=== PATIENT | male | born 2000 | race Hispanic/Latino ===

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

== ENCOUNTER 2020-06-25 09:31 | Emergency (ER) | payer OTHER ==
[2020-06-25 10:19] LABS: Absolute Lymphocytes (CBC) 1.8 K/uL (0.7-4.9); Basophils % 0.7 % (0-1.3); Hematocrit 43.1 % (39.6-49.0); Lymphocytes % 23.8 % (15.3-44.8); MPV 8.4 fL (7.6-11.3); RBC Red Blood Cell Count 5.17 M/uL (4.33-5.43)
[2020-06-25 10:26] LABS: BUN Blood Urea Nitrogen 9 mg/dL (7-18); Bicarbonate 24 mmol/L (21-32); Glucose Level 112 mg/dL (74-106); Sodium Level 140 mmol/L (136-145)
--- NOTE | 2020-06-25 11:29 | EDPHYS ---
Physician Documentation [facility] Name: Jessenia Scott Age: 20 yrs Sex: Male : 2000 Arrival Date: 06/25/2020 Time: 09:35 Bed 6 Private MD: Terri Mckinney ED Physician Yosef Pedraza HPI: 06/25 09:55 This 20 yrs old Male presents to ER via Ambulatory with complaints of Rectal kb Bleeding. 09:55 The patient presents to the emergency department with bleeding from the rectum/anus, kb that is mild. Onset: The symptoms/episode began/occurred 6 year(s) ago. Context: the patient has had anal intercourse. Modifying factors: The symptoms are alleviated by nothing, The symptoms are aggravated by bowel movement. Associate signs and symptoms: Pertinent positives: lower GI bleeding, bright red. The patient has experienced similar episodes in the past. The patient has not recently seen a physician. Pt reports rectal bleeding since he was 14 years old. States it has been worse lately so he wanted to get it checked out. Denies abd pain. States he does have anal intercourse, last time 2 months ago. . Historical: - Allergies: 09:48 No Known Allergies; ss - Home Meds: 09:48 None [Active]; ss - PMHx: 09:48 Asthma; ss - PSHx: 09:48 None; ss - Immunization history:: Adult Immunizations up to date. - Social history:: Smoking status: Patient denies any tobacco usage or history of. ROS: 09:57 Constitutional: Negative for fever, chills, and weight loss, Respiratory: Negative for kb shortness of breath, cough, wheezing, and pleuritic chest pain, : Negative for injury, bleeding, discharge, and swelling, MS/Extremity: Negative for injury and deformity, Skin: Negative for injury, rash, and discoloration, Neuro: Negative for headache, weakness, numbness, tingling, and seizure. 09:57 Abdomen/GI: Positive for rectal bleeding, Negative for abdominal pain, nausea and vomiting, diarrhea. Exam: 11:27 Constitutional: This is a well developed, well nourished patient who is awake, alert, kb and in no acute distress. Head/Face: Normocephalic, atraumatic. Respiratory: Respirations even and unlabored. No increased work of breathing, no retractions or nasal flaring. Abdomen/GI: Soft, non-tender. No distention Skin: Warm, dry with normal turgor. Normal color. MS/ Extremity: Pulses equal, no cyanosis. Neurovascular intact. Full, normal range of motion. Neuro: Awake and alert, GCS 15, oriented to person, place, time, and situation. Moves all extremities. Normal gait. 11:27 Abdomen/GI: Rectal exam: rectal tone normal, Stool: normal, guaiac positive. Vital Signs: 09:45 BP 154 / 108; Pulse 109; Resp 16; Temp 98.1(TE); Pulse Ox 99% on R/A; Height 5 ft. 7 ss in. (170.18 cm); Pain 0/10; 10:22 BP 130 / 72 RA Sitting (auto/reg); Pulse 88; Resp 16 S; Pulse Ox 97% on R/A; sv 11:27 BP 130 / 81; Pulse 90; Resp 16; Pulse Ox 98% ; sv MDM: 09:49 Patient medically screened. kb 09:56 Data reviewed: vital signs, nurses notes. Data interpreted: Pulse oximetry: on room air kb is 99 %. Interpretation: normal. 11:27 Counseling: I had a detailed discussion with the patient and/or guardian regarding: the kb historical points, exam findings, and any diagnostic results supporting the discharge/admit diagnosis, lab results, the need for outpatient follow up, a orthopaedic surgeon, to return to the emergency department if symptoms worsen or persist or if there are any questions or concerns that arise at home. 06/25 09:49 Order name: Basic Metabolic Panel 06/25 09:49 Order name: CBC with Diff; Complete Time: 10:26 06/25 09:49 Order name: IV Saline Lock; Complete Time: 10:00 06/25 09:49 Order name: Labs collected and sent; Complete Time: 10:00 06/25 09:50 Order name: Basic Metabolic Panel; Complete Time: 10:26 EDMS Administered Medications: No medications were administered Disposition: 06/26 07:29 Co-signature as Attending Physician, Yosef Pedraza MD I agree with the assessment and kdr plan of care. Disposition: 06/25/20 11:28 Discharged to Home. Impression: Gastrointestinal hemorrhage, unspecified - rectal bleeding. - Condition is Stable. - Discharge Instructions: Gastrointestinal Bleeding, [id number], Rectal Bleeding, [id number]. - Medication Reconciliation Form, Thank You Letter, Antibiotic Education, Prescription Opioid Use, Work release form form. - Follow up: Emergency Department; When: As needed; Reason: Worsening of condition. Follow up: Private Physician; When: 2 - 3 days; Reason: Recheck today's complaints, Continuance of care, Re-evaluation by your physician. Signatures: Dispatcher [employer] EDMS Emeli Quintero, DAVID-C PLANT CONTROL AIDE-Mabel Le, RN RN sv Yosef Pedraza MD MD [facility] Samantha Girard RN RN ss Corrections: (The following items were deleted from the chart) 06/25 11:29 11:27 Counseling: I had a detailed discussion with the patient and/or guardian ace regarding: the historical points, exam findings, and any diagnostic results supporting the discharge/admit diagnosis, lab results, the need for outpatient follow up, a orthopaedic surgeon, to return to the emergency department if symptoms worsen or persist or if there are any questions or concerns that arise at home, 11:42 11:28 06/25/2020 11:28 Discharged to Home. Impression: Gastrointestinal hemorrhage, sv unspecified - rectal bleeding. Condition is Stable. Forms are Medication Reconciliation Form, Thank You Letter, Antibiotic Education, Prescription Opioid Use. Follow up: Emergency Department; When: As needed; Reason: Worsening of condition. Follow up: Private Physician; When: 2 - 3 days; Reason: Recheck today's complaints, Continuance of care, Re-evaluation by your physician. kb
--- NOTE | 2020-06-25 11:29 | ER ---
Nurse's Notes [facility] Name: Jessenia Scott Age: 20 yrs Sex: Male : 2000 Arrival Date: 06/25/2020 Time: 09:35 Bed 6 Private MD: Terri Mckinney Diagnosis: Gastrointestinal hemorrhage, unspecified-rectal bleeding Presentation: 06/25 09:45 Chief complaint: Patient states: Rectal bleeding that has been ongoing for some time, ss but states that now he is getting older and has anal intercourse that perhaps that is why it is getting worse. Coronavirus screen: Client denies travel out of the [place] in the last 14 days. Ebola Screen: Patient denies exposure to infectious person. Patient denies travel to an Ebola-affected area in the 21 days before illness onset. Initial Sepsis Screen: Does the patient meet any 2 criteria? No. Patient's initial sepsis screen is negative. Does the patient have a suspected source of infection? No. Patient's initial sepsis screen is negative. Risk Assessment: Do you want to hurt yourself or someone else? Patient reports no desire to harm self or others. Onset of symptoms is unknown. 09:45 Method Of Arrival: Ambulatory ss 09:45 Acuity: JERRY 3 ss Historical: - Allergies: 09:48 No Known Allergies; ss - Home Meds: 09:48 None [Active]; ss - PMHx: 09:48 Asthma; ss - PSHx: 09:48 None; ss - Immunization history:: Adult Immunizations up to date. - Social history:: Smoking status: Patient denies any tobacco usage or history of. Screenin:21 Abuse screen: Denies threats or abuse. Denies injuries from another. Nutritional sv screening: No deficits noted. Tuberculosis screening: No symptoms or risk factors identified. Fall Risk None identified. Assessment: 10:05 General: Appears in no apparent distress. comfortable, well developed, Behavior is sv calm, cooperative, appropriate for age. Pain: Denies pain. Neuro: Level of Consciousness is awake, alert, obeys commands, Oriented to person, place, time, situation, Appropriate for age. Respiratory: Airway is patent Respiratory effort is even, unlabored, Respiratory pattern is regular, symmetrical. GI: Reports bloody stool, streaked blood noted. Patient currently denies nausea, vomiting. Derm: Skin is normal. 11:42 Reassessment: Patient appears in no apparent distress at this time. No changes from sv previously documented assessment. Patient and/or family updated on plan of care and expected duration. Pain level reassessed. Patient is alert, oriented x 3, equal unlabored respirations, skin warm/dry/pink. Vital Signs: 09:45 BP 154 / 108; Pulse 109; Resp 16; Temp 98.1(TE); Pulse Ox 99% on R/A; Height 5 ft. 7 ss in. (170.18 cm); Pain 0/10; 10:22 BP 130 / 72 RA Sitting (auto/reg); Pulse 88; Resp 16 S; Pulse Ox 97% on R/A; sv 11:27 BP 130 / 81; Pulse 90; Resp 16; Pulse Ox 98% ; sv ED Course: 09:35 Patient arrived in ED. mr 09:35 Terri Mckinney is Private Physician. mr 09:47 Emeli Quintero FNP-C is [facility]. kb 09:47 Yosef Pedraza MD is Attending Physician. kb 09:47 Triage completed. ss 09:48 Arm band placed on right wrist. ss 10:00 Inserted saline lock: 20 gauge in left antecubital area, using aseptic technique. Blood mt collected. 10:04 Di Schafer, EVAN is Primary Nurse. sv 10:05 Patient has correct armband on for positive identification. Placed in gown. Bed in low sv position. Call light in reach. Adult w/ patient. Pulse ox on. NIBP on. Door closed. Head of bed elevated. 10:05 Basic Metabolic Panel Sent. sv 10:19 Primary Nurse role handed off by Di Schafer, EVAN sv 10:19 Mabel Hassan, EVAN is Primary Nurse. sv 10:22 Awaiting lab results. sv 11:30 Served as a manufacturing laborer during rectal exam. sv 11:41 IV discontinued, intact, bleeding controlled, No redness/swelling at site. Pressure sv dressing applied. Administered Medications: No medications were administered Outcome: 11:28 Discharge ordered by . kb 11:42 Discharged to home ambulatory, with family. sv 11:42 Condition: stable 11:42 Discharge instructions given to patient, Instructed on discharge instructions, follow up and referral plans. Demonstrated understanding of instructions, follow-up care. 11:42 Patient left the ED. sv Signatures: Eemli Quintero, ROSALBA HERNANDEZ-Mabel Le RN EVAN Ambrose Cari Samantha Suazo, RN RN Rupali Roberson mo
[2020-06-25 11:55] VITALS: TEMP 98.1
[2020-06-25 11:57] VITALS: BP 130/81; O2SAT 98
== END 2020-06-25 11:42 | disposition home or self-care (01) ==
LOC: ER 09:31
DX: K62.5 Hemorrhage of anus and rectum (principal)
CPT/HCPCS: 36415; 80048; 85025; 99284

== ENCOUNTER 2021-02-17 17:37 | Emergency (ER) | payer OTHER ==
[2021-02-17 19:04] LABS: SARS-COV-2 RT PCR NEGATIVE (NEGATIVE)
--- NOTE | 2021-02-17 19:42 | ER ---
Nurse's Notes [facility] Name: Jessenia Scott Age: 20 yrs Sex: Male : 2000 Arrival Date: 02/17/2021 Time: 17:42 Bed Treatment Private MD: Diagnosis: Acute pharyngitis, unspecified Presentation: 02/17 17:59 Chief complaint: Patient states: I began having a sore swollen throat around 02/13/2021. ld1 Pt reports fever, sore throat, ARTURO ear pain. Coronavirus screen: Client presents with at least one sign or symptom that may indicate coronavirus-19. Standard/surgical mask placed on the client. Ebola Screen: No symptoms or risks identified at this time. Initial Sepsis Screen: Does the patient meet any 2 criteria? No. Patient's initial sepsis screen is negative. Does the patient have a suspected source of infection? No. Patient's initial sepsis screen is negative. Risk Assessment: Do you want to hurt yourself or someone else? Patient reports no desire to harm self or others. Onset of symptoms was February 17, 2021. 17:59 Method Of Arrival: Ambulatory ld1 17:59 Acuity: JERRY 4 ld1 Triage Assessment: 18:02 General: Appears in no apparent distress. comfortable, Behavior is calm, cooperative, ld1 appropriate for age. Pain: Denies pain. EENT: Throat is reddened. Neuro: Level of Consciousness is awake, alert, obeys commands, Oriented to person, place, time, situation, Appropriate for age. Cardiovascular: Capillary refill < 3 seconds Patient's skin is warm and dry. Respiratory: Airway is patent Respiratory effort is even, unlabored, Respiratory pattern is regular, symmetrical. GI: Abdomen is round non-distended. : No signs and/or symptoms were reported regarding the genitourinary system. Derm: No signs and/or symptoms reported regarding the dermatologic system. Musculoskeletal: No signs and/or symptoms reported regarding the musculoskeletal system. Historical: - Allergies: 18:02 No Known Allergies; ld1 - Home Meds: 18:02 None [Active]; ld1 - PMHx: 18:02 Asthma; ld1 - PSHx: 18:02 None; ld1 - Immunization history:: Adult Immunizations up to date, Client reports having NOT received the Covid vaccine. - Social history:: Smoking status: Patient denies any tobacco usage or history of. Patient/guardian denies using alcohol. Screenin:31 Abuse screen: Denies threats or abuse. Denies injuries from another. Nutritional [facility] screening: No deficits noted. Tuberculosis screening: No symptoms or risk factors identified. Fall Risk None identified. Assessment: 19:33 Respiratory: Airway is patent Trachea midline Respiratory effort is even, unlabored, 5 Respiratory pattern is regular, Vital Signs: 17:59 BP 120 / 72; Pulse 125; Resp 18; Temp 99.9(O); Pulse Ox 98% on R/A; Weight 90.72 kg; ld1 Height 5 ft. 7 in. (170.18 cm); Pain 0/10; 17:59 Body Mass Index 31.32 (90.72 kg, 170.18 cm) ld1 ED Course: 17:42 Patient arrived in ED. mr 18:02 Triage completed. ld1 18:02 Arm band placed on right wrist. ld1 18:08 COVID-19/FLU A+B/RSV (Document "Date of Onset" if Symptomatic) Sent. ld1 18:08 Strep Sent. ld1 19:30 Joe Gerardo PA is PHCP. [facility] 19:30 Renaldo Mata MD is Attending Physician. [facility] 19:31 No provider procedures requiring assistance completed. 5 19:32 Jeffy Mera, EVAN is Primary Nurse. as6 19:32 Patient has correct armband on for positive identification. Bed in low position. Call [facility] light in reach. Side rails up X 1. 19:53 Patient did not have IV access during this emergency room visit. as6 Administered Medications: No medications were administered Outcome: 19:42 Discharge ordered by . [facility] 19:53 Discharged to home ambulatory. as6 19:53 Condition: stable 19:53 Discharge instructions given to patient, Instructed on discharge instructions, follow up and referral plans. medication usage, Demonstrated understanding of instructions, follow-up care, medications, Prescriptions given X 1. 19:54 Patient left the ED. as6 Signatures: Joe Gerardo PA PA [facility] Arnol Cari Lina Garcia RN RN ld1 Joseline Kyle RN RN 5 Slawson, Jeffy, RN RN as6
--- NOTE | 2021-02-17 19:42 | EDPHYS ---
Physician Documentation [facility] Name: Jessenia Scott Age: 20 yrs Sex: Male : 2000 Arrival Date: 02/17/2021 Time: 17:42 Bed Treatment Private MD: ED Physician Renaldo Mata HPI: 02/17 19:38 This 20 yrs old Male presents to ER via Ambulatory with complaints of Sore jmm Throat. 19:38 The patient presents with sore throat. Onset: The symptoms/episode began/occurred jmm gradually, 4 day(s) ago. Modifying factors: The symptoms are alleviated by nothing, the symptoms are aggravated by nothing. Associated signs and symptoms: Pertinent negatives cough, vomiting. The patient has experienced similar episodes in the past. Historical: - Allergies: 18:02 No Known Allergies; ld1 - Home Meds: 18:02 None [Active]; ld1 - PMHx: 18:02 Asthma; ld1 - PSHx: 18:02 None; ld1 - Immunization history:: Adult Immunizations up to date, Client reports having NOT received the Covid vaccine. - Social history:: Smoking status: Patient denies any tobacco usage or history of. Patient/guardian denies using alcohol. ROS: 19:38 Cardiovascular: Negative for chest pain, palpitations, and edema, Respiratory: Negative jmm for shortness of breath, cough, wheezing, and pleuritic chest pain. 19:38 Constitutional: Positive for body aches, chills, fever. 19:38 All other systems are negative. Exam: 19:38 Constitutional: This is a well developed, well nourished patient who is awake, alert, jmm and in no acute distress. Head/Face: atraumatic. Eyes: EOMI, no conjunctival erythema appreciated 19:38 Back: Normal ROM Skin: General appearance color normal MS/ Extremity: Moves all extremities, no obvious deformities appreciated, no edema noted to the lower extremities Neuro: Awake and alert, normal gait Psych: Behavior is normal, Mood is normal, Patient is cooperative and pleasant 19:38 ENT: Posterior pharynx: erythema, that is moderate. 19:38 Cardiovascular: Rate: normal, Rhythm: regular. 19:38 Respiratory: the patient does not display signs of respiratory distress, Respirations: normal, Breath sounds: are clear throughout. Vital Signs: 17:59 BP 120 / 72; Pulse 125; Resp 18; Temp 99.9(O); Pulse Ox 98% on R/A; Weight 90.72 kg; ld1 Height 5 ft. 7 in. (170.18 cm); Pain 0/10; 17:59 Body Mass Index 31.32 (90.72 kg, 170.18 cm) ld1 MDM: 19:38 Patient medically screened. [facility] 19:39 Data reviewed: vital signs, nurses notes. Counseling: I had a detailed discussion with rimma the patient and/or guardian regarding: the historical points, exam findings, and any diagnostic results supporting the discharge/admit diagnosis, lab results, the need for outpatient follow up, to return to the emergency department if symptoms worsen or persist or if there are any questions or concerns that arise at home. ED course: Patient is alert and non toxic in appearance in the ED. Advised to follow up with pcp and otherwise given strict return precautions. patient understood and agrees with the plan of care. . 02/17 18:03 Order name: COVID-19/FLU A+B/RSV (Document "Date of Onset" if Symptomatic); Complete ld1 Time: 19:38 12 18:03 Order name: Strep; Complete Time: 19:38 ld1 02/17 18:25 Order name: Throat Culture EDMS Administered Medications: No medications were administered Disposition: 02/18 01:17 Co-signature as Attending Physician, Renaldo Mata MD. [email or web address] Disposition Summary: 02/17/21 19:42 Discharge Ordered Location: Home [facility] Condition: Stable [facility] Diagnosis - Acute pharyngitis, unspecified [facility] Followup: [facility] - With: Private Physician - When: 2 - 3 days - Reason: Recheck today's complaints, Continuance of care, Re-evaluation by your physician Discharge Instructions: - Discharge Summary Sheet [facility] - Pharyngitis [facility] Forms: - Medication Reconciliation Form [facility] - Thank You Letter [facility] - Antibiotic Education [facility] - Prescription Opioid Use [facility] Prescriptions: - Amoxicillin 875 mg Oral Tablet - take 1 tablet by ORAL route every 12 hours for 10 days; 20 tablet; Refills: 0, [facility] Product Selection Permitted Signatures: Dispatcher [employer] EDJoe Finn PA PA jmm Holmes, Maurice, MD MD 7 Lina Garcia, RN RN ld1
[2021-02-17 20:05] VITALS: BP 120/72; TEMP 99.9; O2SAT 98
== END 2021-02-17 19:54 | disposition home or self-care (01) ==
LOC: ER 17:37
DX: J02.9 Acute pharyngitis, unspecified (principal)
CPT/HCPCS: 87070; 87081; 0241U; 99283

== ENCOUNTER → 2023-03-12 | Emergency (ER) | payer OTHER ==
[~2023-03-12] MED LIST: METOCLOPRAMIDE 10 MG/2mL INJ ONE; NA CHLORIDE 0.9% 1,000 ML ONE; NA CHLORIDE 0.9% 50 ML ONE; ONDANSETRON 4 MG/2 ML VIAL ONE; POTASSIUM 25 MEQ EFFERV TAB ONE
[2023-03-12 03:43] LABS: Protime INR 1.14
[2023-03-12 03:47] LABS: Hematocrit 43.7 % (39.6-49.0); Lymphocytes % 35.1 % (15.3-44.8); MCV 83.8 fL (80-100); MPV 7.8 fL (7.6-11.3); Platelets 343 thou/uL (152-406); RBC Red Blood Cell Count 5.22 M/uL (4.33-5.43)
[2023-03-12 04:04] LABS: ALT/SGPT 22 U/L (16-61); AST/SGOT 19 U/L (15-37); Albumin 4.1 g/dL (3.4-5.0); Alkaline Phosphatase 74 U/L (45-117); BUN Blood Urea Nitrogen 12 mg/dL (7-18); Bicarbonate 24 mEq/L (21-32); Bilirubin Total 0.3 mg/dL (0.2-1.0); Glomerular Filtration Rate 119 ml/min (=/>90); Glucose Level 162 mg/dL (74-106); Potassium 2.9 mEq/L (3.5-5.1); Protein, Total 8.1 g/dL (6.4-8.2); Sodium Level 140 mEq/L (136-145)
[2023-03-12 04:05] LABS: Bilirubin Direct < 0.1 mg/dL (0-0.2); Bilirubin Indirect, Calculated ND mg/dL (0.2-0.8)
--- NOTE | 2023-03-12 04:26 | EDPHYS ---
Physician Documentation [facility] Name: Jessenia Scott Age: 22 yrs Sex: Male : 2000 Arrival Date: 03/12/2023 Time: 02:51 Bed 7 Private MD: ED Physician Inocente Coon HPI: 03/12 03:07 This 22 yrs old Male presents to ER via Unassigned with complaints of nausea , shukri vomiting after pot. 03:07 The patient presents to the emergency department with nausea, vomiting. Onset: The shukri symptoms/episode began/occurred just prior to arrival. Possible causes: pot brownies. The symptoms are aggravated by nothing. The symptoms are alleviated by nothing. pot brownies. Associated signs and symptoms: Pertinent positives: nausea, vomiting. Severity of symptoms: At their worst the symptoms were mild moderate in the emergency department the symptoms are unchanged. The patient has not experienced similar symptoms in the past. Historical: - Allergies: 03:30 No Known Allergies; vc1 - Home Meds: 03:30 None [Active]; vc1 - PMHx: 03:30 None; vc1 - PSHx: 03:30 None; vc1 - Immunization history:: Client reports having NOT received the Covid vaccine. Flu vaccine is not up to date. - Social history:: Smoking status: Patient denies any tobacco usage or history of. Patient uses first time eating a marijuana infused food. - Family history:: not pertinent. ROS: 03:07 Constitutional: Negative for fever, chills, and weight loss, Eyes: Negative for injury, shukri pain, redness, and discharge, ENT: Negative for injury, pain, and discharge, Neck: Negative for injury, pain, and swelling, Cardiovascular: Negative for chest pain, palpitations, and edema, Respiratory: Negative for shortness of breath, cough, wheezing, and pleuritic chest pain, Back: Negative for injury and pain, : Negative for injury, bleeding, discharge, and swelling, MS/Extremity: Negative for injury and deformity, Skin: Negative for injury, rash, and discoloration, Psych: Negative for depression, anxiety, suicide ideation, homicidal ideation, and hallucinations, Allergy/Immunology: Negative for hives, rash, and allergies, Endocrine: Negative for neck swelling, polydipsia, polyuria, polyphagia, and marked weight changes, Hematologic/Lymphatic: Negative for swollen nodes, abnormal bleeding, and unusual bruising, 03:07 Abdomen/GI: Positive for nausea and vomiting, 03:07 Neuro: Positive for altered mental status, Exam: 03:07 Constitutional: This is a well developed, well nourished patient who is awake, alert, shukri and in no acute distress. Head/Face: Normocephalic, atraumatic. Eyes: Pupils equal round and reactive to light, extra-ocular motions intact. Lids and lashes normal. Conjunctiva and sclera are non-icteric and not injected. Cornea within normal limits. Periorbital areas with no swelling, redness, or edema. ENT: Nares patent. No nasal discharge, no septal abnormalities noted. Tympanic membranes are normal and external auditory canals are clear. Oropharynx with no redness, swelling, or masses, exudates, or evidence of obstruction, uvula midline. Mucous membranes moist. Neck: Trachea midline, no thyromegaly or masses palpated, and no cervical lymphadenopathy. Supple, full range of motion without nuchal rigidity, or vertebral point tenderness. No Meningismus. Chest/axilla: Normal chest wall appearance and motion. Nontender with no deformity. No lesions are appreciated. Cardiovascular: Regular rate and rhythm with a normal S1 and S2. No gallops, murmurs, or rubs. Normal PMI, no JVD. No pulse deficits. Respiratory: Lungs have equal breath sounds bilaterally, clear to auscultation and percussion. No rales, rhonchi or wheezes noted. No increased work of breathing, no retractions or nasal flaring. Abdomen/GI: Soft, non-tender, with normal bowel sounds. No distension or tympany. No guarding or rebound. No evidence of tenderness throughout. Back: No spinal tenderness. No costovertebral tenderness. Full range of motion. Skin: Warm, dry with normal turgor. Normal color with no rashes, no lesions, and no evidence of cellulitis. MS/ Extremity: Pulses equal, no cyanosis. Neurovascular intact. Full, normal range of motion. Neuro: Awake and alert, GCS 15, oriented to person, place, time, and situation. Cranial nerves II-XII grossly intact. Motor strength 5/5 in all extremities. Sensory grossly intact. Cerebellar exam normal. Normal gait. Psych: Awake, alert, with orientation to person, place and time. Behavior, mood, and affect are within normal limits. 03:07 Musculoskeletal/extremity: DVT Exam: No signs of deep vein thrombosis. no pain, no swelling, no tenderness, negative Homans' sign noted on exam, no appreciated bluish discoloration, no erythema, no increased warmth, 03:31 ECG was reviewed by the Attending Physician. [facility] Vital Signs: 03:00 BP 127 / 62; Pulse 90; Resp 18; Temp 98.4; Pulse Ox 97% ; Weight 99.79 kg; Height 5 ft. vc1 7 in. ; Pain 0/10; 04:00 BP 127 / 97; Pulse 90; Resp 19; Pulse Ox 98% ; vc1 05:00 BP 122 / 70; Pulse 59; Resp 20; Pulse Ox 98% ; vc1 03:00 Body Mass Index 34.46 (99.79 kg, 170.18 cm) vc1 03:00 Pain Scale: Adult vc1 MDM: 03:00 Patient medically screened. cp 03:16 Differential diagnosis: Nonspecific abd pain, gastritis, viral gastroenteritis, shukri gastroenteritis. Data reviewed: vital signs, nurses notes, lab test result(s), EKG. Consideration of Admission/Observation Escalation of care including admission/observation considered. I considered the following discharge prescriptions or medication management in the emergency department Medications were administered in the Emergency Department. See MAR. Independent interpretation of the following test(s) in the Emergency Department EKG: See my EKG interpretation above. Test considered but Not performed: CT: no ct abd/pelvis. Care significantly affected by the following chronic conditions: none. 03/12 03:04 Order name: Acetaminophen; Complete Time: 04:24 [facility] 03/12 03:04 Order name: Basic Metabolic Panel; Complete Time: 04:24 [facility] 03/12 03:04 Order name: CBC with Diff; Complete Time: 04:05 [facility] 03/12 03:04 Order name: ETOH Level; Complete Time: 04:24 [facility] 03/12 03:04 Order name: Hepatic Function; Complete Time: 04:24 [facility] 03/12 03:04 Order name: PT-INR; Complete Time: 04:05 [facility] 03/12 03:04 Order name: Ptt, Activated; Complete Time: 04:05 [facility] 03/12 03:04 Order name: Salicylate; Complete Time: 04:24 [facility] 03/12 03:04 Order name: EKG; Complete Time: 03:05 [facility] 03/12 03:04 Order name: EKG - Nurse/Tech; Complete Time: 03: [facility] 03/12 03:04 Order name: IV Saline Lock; Complete Time: : [facility] 03/12 03:04 Order name: Labs collected and sent; Complete Time: 03: [facility] 03/12 03:04 Order name: Suicide Screening (Long); Complete Time: : [facility] 03/12 04:25 Order name: PO challenge: juice; Complete Time: 05:12 [facility] EC: Rate is 88 beats/min. Rhythm is regular. QRS Basom is Normal. WA interval is normal. QRS shukri interval is normal. QT interval is normal. No Q waves. T waves are Normal. No ST changes noted. Clinical impression: NSR w/ Non-specific ST/T Changes and No evidence of ischemia. Interpreted by me. Reviewed by me. Administered Medications: 03: Drug: NS 0.9% IV 1000 ml IV at 1 bolus Per protocol; 1000 mL bolus Route: IV; Rate: 1 vc1 bolus; Site: left antecubital; 03:26 Drug: metoCLOPramide IVP 10 mg IVP once; over 1 to 2 minutes Route: IVP; Site: left vc1 antecubital; 05:12 Follow up: Response: No adverse reaction; Marked relief of symptoms vc1 03:26 Drug: Ondansetron IVP 4 mg IVP once; over 2 minutes Route: IVP; Site: left antecubital; vc1 05:12 Follow up: Response: No adverse reaction; Marked relief of symptoms vc1 05:12 Drug: Potassium PO Effervescent Tablet 50 mEq PO once; dissolve in 4 ounces of water or vc1 juice Route: PO; 05:13 Follow up: Response: No adverse reaction; Marked relief of symptoms vc1 Disposition Summary: 03/12/23 04:26 Discharge Ordered Notes: Location: Home shukri Problem: new shukri Symptoms: have improved shukri Condition: Fair shukri Diagnosis - Vomiting shukri - Adverse effect of other drugs, medicaments and biological substances shukri - Abuse of other non-psychoactive substances shukri - Hypokalemia shukri Followup: shukri - With: Private Physician - When: 2 - 3 days - Reason: Recheck today's complaints, Continuance of care, Re-evaluation by your physician Discharge Instructions: - Discharge Summary Sheet shukri - Finding Treatment for Addiction shukri - Potassium Content of Foods shukri - Substance Use Disorder shukri - Supporting Someone With an Addiction shukri - Hypokalemia shukri - Vomiting, Adult shukri Forms: - Medication Reconciliation Form shukri - Thank You Letter shukri - Antibiotic Education shukri - Prescription Opioid Use shukri - Patient Portal Instructions shukri - Leadership Thank You Letter shukri Prescriptions: - ondansetron 4 mg Oral Tablet,disintegrating - take 1 tablet ORAL route every 6 hours; 20 tablet; Refills: 0, Product [facility] Selection Permitted - Potassium Chloride 20 meq Oral Packet - take 1 packet ORAL route every 12 hours 1 packet in 6 (six) ounces of water or shukri juice; Take after meal; 14 packet; Refills: 0, Product Selection Permitted Signatures: Dispatcher [employer] Inocente Kraft MD MD cha Page, Corey PA Ynes Beverly cp RN RN vc1
--- NOTE | 2023-03-12 04:26 | ER ---
Nurse's Notes [facility] Name: Jessenia Scott Age: 22 yrs Sex: Male : 2000 Arrival Date: 03/12/2023 Time: 02:51 Bed 7 Private MD: Diagnosis: Vomiting;Adverse effect of other drugs, medicaments and biological substances;Abuse of other non-psychoactive substances;Hypokalemia Presentation: 03/12 03:00 Chief complaint: EMS states: He ate half a marijuana brownie and became very nauseous vc1 and started vomiting. Coronavirus screen: Vaccine status: Patient reports being unvaccinated. Client denies travel out of the [place] in the last 14 days. At this time, the client does not indicate any symptoms associated with coronavirus-19. Ebola Screen: Patient negative for fever greater than or equal to 101.5 degrees Fahrenheit, and additional compatible Ebola Virus Disease symptoms Patient denies exposure to infectious person. Patient denies travel to an Ebola-affected area in the 21 days before illness onset. No symptoms or risks identified at this time. Initial Sepsis Screen: Does the patient meet any 2 criteria? No. Patient's initial sepsis screen is negative. Does the patient have a suspected source of infection? No. Patient's initial sepsis screen is negative. Risk Assessment: Do you want to hurt yourself or someone else? Patient reports no desire to harm self or others. Onset of symptoms was March 12, 2023. 03:00 Method Of Arrival: EMS: [facility] vc1 03:00 Acuity: JERRY 3 vc1 Triage Assessment: 03:00 General: Appears in no apparent distress. comfortable, Behavior is cooperative, vc1 restless. General: Behavior is anxious. Pain: Denies pain. EENT: No deficits noted. No signs and/or symptoms were reported regarding the EENT system. Neuro: Level of Consciousness is awake, alert, obeys commands, Oriented to person, place, time. Cardiovascular: No deficits noted. Respiratory: Airway is patent Respiratory effort is even, unlabored, Respiratory pattern is regular, symmetrical. GI: Pt is actively vomiting Reports nausea, vomiting. : No deficits noted. No signs and/or symptoms were reported regarding the genitourinary system. 03:00 Derm: No deficits noted. No signs and/or symptoms reported regarding the dermatologic vc1 system. Musculoskeletal: No deficits noted. No signs and/or symptoms reported regarding the musculoskeletal system. Historical: - Allergies: 03:30 No Known Allergies; vc1 - Home Meds: 03:30 None [Active]; vc1 - PMHx: 03:30 None; vc1 - PSHx: 03:30 None; vc1 - Immunization history:: Client reports having NOT received the Covid vaccine. Flu vaccine is not up to date. - Social history:: Smoking status: Patient denies any tobacco usage or history of. Patient uses first time eating a marijuana infused food. - Family history:: not pertinent. Screenin:00 [facility] ED Fall Risk Assessment (Adult) History of falling in the last 3 months, vc1 including since admission No falls in past 3 months (0 pts) Confusion or Disorientation No (0 pts) Intoxicated or Sedated Yes (3 pts) Impaired Gait Yes (1 pt) Mobility Assist Device Used No (0 pt) Altered Elimination No (0 pt) Score/Fall Risk Level 3 or more points = High Risk Oriented to surroundings, Maintained a safe environment, Educated pt \T\ family on fall prevention, incl call for assistance when getting out of bed. Abuse screen: Denies threats or abuse. Nutritional screening: No deficits noted. Tuberculosis screening: No symptoms or risk factors identified. Assessment: 03:34 Reassessment: see triage assessment. vc1 05:16 Reassessment: Patient and/or family updated on plan of care and expected duration. Pain vc1 level reassessed. Patient is alert, oriented x 3, equal unlabored respirations, skin warm/dry/pink. Patient denies pain at this time. Patient states feeling better. Patient states symptoms have improved. GI: Patient currently denies nausea, vomiting. Vital Signs: 03:00 BP 127 / 62; Pulse 90; Resp 18; Temp 98.4; Pulse Ox 97% ; Weight 99.79 kg; Height 5 ft. vc1 7 in. ; Pain 0/10; 04:00 BP 127 / 97; Pulse 90; Resp 19; Pulse Ox 98% ; vc1 05:00 BP 122 / 70; Pulse 59; Resp 20; Pulse Ox 98% ; vc1 03:00 Body Mass Index 34.46 (99.79 kg, 170.18 cm) vc1 03:00 Pain Scale: Adult vc1 ED Course: 03:00 Patient arrived in ED. vc1 03:00 Inocente Barrios PA is PHCP. patricia 03:00 Inocente Coon MD is Attending Physician. cp 03:00 Arm band placed on right wrist. vc1 03:00 Patient has correct armband on for positive identification. Bed in low position. Call vc1 light in reach. Side rails up X2. Client placed on continuous cardiac and pulse oximetry monitoring. NIBP monitoring applied. 03:07 Ynes Garcia RN is Primary Nurse. vc1 03:29 Triage completed. vc1 05:14 No provider procedures requiring assistance completed. IV discontinued, intact, vc1 bleeding controlled, No redness/swelling at site. Pressure dressing applied. Administered Medications: 03:26 Drug: NS 0.9% IV 1000 ml IV at 1 bolus Per protocol; 1000 mL bolus Route: IV; Rate: 1 vc1 bolus; Site: left antecubital; 03:26 Drug: metoCLOPramide IVP 10 mg IVP once; over 1 to 2 minutes Route: IVP; Site: left vc1 antecubital; 05:12 Follow up: Response: No adverse reaction; Marked relief of symptoms vc1 03:26 Drug: Ondansetron IVP 4 mg IVP once; over 2 minutes Route: IVP; Site: left antecubital; vc1 05:12 Follow up: Response: No adverse reaction; Marked relief of symptoms vc1 05:12 Drug: Potassium PO Effervescent Tablet 50 mEq PO once; dissolve in 4 ounces of water or vc1 juice Route: PO; 05:13 Follow up: Response: No adverse reaction; Marked relief of symptoms vc1 Medication: 03:31 VIS not applicable for this client. vc1 Outcome: 04:26 Discharge ordered by . shukri 05:14 Discharged to home ambulatory, vc1 05:14 Condition: good 05:14 Discharge instructions given to patient, Instructed on discharge instructions, follow up and referral plans. medication usage, Demonstrated understanding of instructions, follow-up care, medications, Prescriptions given X 2, 05:15 Patient left the ED. vc1 Signatures: Inocente Coon MD MD cha Page, Corey, PA PA cp Calcote, Vanessa, RN RN vc1
[2023-03-12 06:59] VITALS: BP 127/62; TEMP 98.4; O2SAT 97
== END ==
LOC: ER 02:51
DX: F55.8 Abuse of other non-psychoactive substances (principal); T50.995A Adverse effect of other drugs, medicaments and biological substances, initial encounter; E87.6 Hypokalemia; Z28.310 Unvaccinated for COVID-19
CPT/HCPCS: 93005; 85025; 80048; 36415; 85610; 80076; 85730; 96375; 96374; 99284; 80143; 80179; 82077; J2765; J2405; J7030